=== PATIENT | male | born 1955 | race Caucasian/White ===

== ENCOUNTER 2022-12-27 14:11 | Observation (INO) | payer MEDICARE, SELFPAY ==
[2022-12-27] VITALS (10 sets, daily range): BP systolic 109–140; BP diastolic 59–75; PULSE 68–91; RESP 18–20; TEMP 36.6–36.9; O2SAT 95–98; BMI 29.0; BMI 30.4
--- NOTE | 2022-12-27 14:25 | PC.NURSE ---
DR. NASH AT BEDSIDE
[2022-12-27 14:26] LABS: POC Glucose,Bedside 250 (70-110)
--- NOTE | 2022-12-27 14:29 | HMH.EDGENADL ---
Discharge Plan Disposition Patient Disposition: Admitted as Observation Condition: Fair Prescriptions Prescriptions: No Action Tresiba FlexTouch U-200 200 unit/mL (3 mL) insulin pen 20 unit SQ DAILY Ozempic 0.25 mg or 0.5 mg(2 mg/1.5 mL) pen injector 0.5 mg SQ WEEKLY furosemide 40 mg/4 mL oral solution 40 mg/4 mL solution 40 mg PO DAILY metoprolol succinate 50 mg tablet extended release 24 hr 50 mg PO DAILY mirtazapine 15 mg tablet 15 mg PO DAILY potassium chloride 20 mEq/15 mL liquid 20 meq PO DAILY ramipril 5 mg capsule 5 mg PO DAILY Referrals Follow up/Referrals: Ashley Sagastume [Primary Care Provider] - See instructions Clinical Impressions Clinical Impression: Accidental overdose of insulin Discharge ED Provider: Honorio Quarles General Adult HPI General Chief complaint: Hyper/Hypoglycemia Stated complaint: took too much insulin Time Seen by Provider: 12/27/22 14:24 History of Present Illness HPI narrative: The patient presents to the emergency department because he accidentally overdosed on his long-acting insulin. He took 40 units this morning as prescribed. Later he injected himself with another 160 units thinking at the time that it was a different medication. The patient has not had any hypoglycemia since the injection. 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 Related Data Home Medications Medication Instructions Recorded Confirmed insulin degludec 200 unit/mL (3 20 unit SQ DAILY 10/31/20 10/31/20 mL) subcutaneous pen (Tresiba FlexTouch U-200 insulin) metoprolol succinate 50 mg 50 mg PO DAILY 10/31/20 10/31/20 tablet,extended release 24 hr mirtazapine 15 mg tablet 15 mg PO DAILY 10/31/20 10/31/20 ramipril 5 mg capsule 5 mg PO DAILY 10/31/20 10/31/20 semaglutide 0.25 mg or 0.5 mg (2 0.5 mg SQ WEEKLY 10/31/20 10/31/20 mg/1.5 mL) subcutaneous pen injector (Ozempic) Allergies Allergy/AdvReac Type Severity Reaction Status Date / Time No Known Allergies Allergy Verified 10/31/20 16:00 [facility] Disclaimer: The information contained in this section may have been updated after the patient was seen, as this information can be updated by other users. Social History Smoking Status: Never smoker alcohol intake: current current occupational status: retired Travel in the last 8 weeks: None ROS Obtained: Yes All systems reviewed & no additional complaints except as documented Physical Exam General General appearance: alert Head Head exam: atraumatic Eye Eye exam: Present normal appearance and PERRL ENT ENT exam: Present normal exam Neck Neck exam: Present normal inspection and full ROM; Absent tenderness or meningismus Chest Chest inspection: Present normal inspection and symmetric chest wall rise; Absent tenderness Respiratory Respiratory exam: Present normal lung sounds bilaterally; Absent respiratory distress or accessory muscle use Cardiovascular Cardiovascular exam: Present regular rate, normal rhythm and normal heart sounds Abdominal Exam Abdominal exam: Present soft and normal bowel sounds; Absent distention, tenderness, heel tap sign, Argueta's sign, Rovsing's sign, tenderness at McBurney's Point or mass Extremities Exam Extremities exam: Present normal inspection, full ROM and other (Was a blood glucose sensor on the posterior aspect of his left arm) Back Exam Back exam: Present normal inspection; Absent CVA tenderness (R) or CVA tenderness (L) Neurological Exam Neurological exam: Present alert and oriented X3 Psychiatric Psychiatric exam: Present normal affect and normal mood Skin Skin exam: Present warm, dry, intact and normal color Medical Decision Making Wilber Inquiry Pt receiving controlled substance: No Vital Signs: 12/27/22 14:12 12/27/22 14:30 Temperature 98.1 F Temperature Source Oral Pulse Rate 91 H Pulse Rate [Radial] 91 H R
--- NOTE | 2022-12-27 14:37 | PC.NURSE ---
[place] [facility] contacted , Sayda, and reported pt condition,
--- NOTE | 2022-12-27 14:50 | PC.NURSE ---
Sayda with [facility] recommended at least 24 hours of hospital observation for patient given the pharmacokinetic profile of Tresiga insulin overdose; guidance communicated to ED physician who will contact Hospitalist and recommend inpatient admission
[2022-12-27 14:54] LABS: Basophils # 0.1 K/mm3 (0-0.2); Basophils % 0.8 % (0.1-2.0); Eosinophils # 0.1 K/mm3 (0.0-0.4); Eosinophils % 0.7 % (0.1-12.0); Hematocrit 47.5 % (42.0-52.0); Hemoglobin 16.5 g/dL (14.1-18.0); Lymphocytes # 2.9 K/mm3 (0.7-4.5); Lymphocytes % 29.3 % (10-50); Mean Corpuscular HGB Conc 34.7 g/dL (31.8-35.4); Mean Corpuscular Hemoglobin 31.6 pg (27.0-31.2); Mean Corpuscular Volume 91.2 fl (80-94); Mean Platelet Volume 7.3 fl (7.4-10.4); Monocytes # 0.6 K/mm3 (0.1-1.0); Monocytes % 5.6 % (1.7-9.3); Neutrophils # 6.4 K/mm3 (1.8-7.8); Neutrophils % 63.6 % (37.0-80.0); Platelet Count 312 K/mm3 (142-424); Red Blood Count 5.21 M/mm3 (4.60-6.20); Red Cell Distribution Width 14.3 % (11.5-17.5)
[2022-12-27 14:56] LABS: Chloride 103 mmol/L (98-107); Potassium 4.3 mmoL/L (3.5-5.1); Sodium 139 mmol/L (136-145)
[2022-12-27 14:58] LABS: Blood Urea Nitrogen 19 mg/dl (9-20); Creatinine Clearance Estimated 85 mL/min (50-200); Estimated Glomerular Filt Rate 75 ml/min (>60); GFR (African American) 90 ML/MIN (>60)
[2022-12-27 14:59] LABS: Alanine Aminotransferase 28 U/L (12-78); Albumin Level 4.6 g/dl (3.5-5.0); Albumin/Globulin Ratio 1.5 (1.1-1.8); Alkaline Phosphatase 69 U/L (38-126); Anion Gap 12.3 mEq/L (5-15); Aspartate Amino Transferase 27 U/L (17-59); Bilirubin,Total 0.4 mg/dl (0.2-1.3); Calcium 8.8 mg/dl (8.4-10.2); Carbon Dioxide 28 mmol/L (22.0-30.0); Globulin 3.1 g/dL (1.3-3.2); Glucose 204 mg/dl (74-100); Total Protein,Serum 7.7 g/dl (6.3-8.2)
[2022-12-27 15:00] LABS: Coronavirus 19, PCR Not Detected (NotDetected); Influenza A, PCR Not Detected (NotDetected); Influenza B, PCR Not Detected (NotDetected)
--- NOTE | 2022-12-27 15:00 | PC.NURSE ---
DR. NASH SPEAKING WITH DR. JOSEPH
--- NOTE | 2022-12-27 15:01 | PC.NURSE ---
DR JOSEPH HAS AGREED TO ADMIT PT
--- NOTE | 2022-12-27 15:02 | PC.NURSE ---
CARE MANAGEMENT NOTIFIED OF ADMISSION
--- NOTE | 2022-12-27 15:35 | PC.NURSE ---
ROUNDED ON PT AT THIS TIME, UPDATED AT THIS TIME. NO NEEDS VOICED
--- NOTE | 2022-12-27 15:42 | PC.NURSE ---
REPORT GIVEN TO Abby RODRIGUEZ RN
--- NOTE | 2022-12-27 15:49 | PC.NURSE ---
PT AMBULATED TO BR WITHOUT ASSISTANCE
--- NOTE | 2022-12-27 16:03 | PC.NURSE ---
PT GOING UP FOR ADMISSION
--- NOTE | 2022-12-27 16:08 | PC.NURSE ---
patient arrived by wheelchair form ED
--- NOTE | 2022-12-27 17:10 | PC.NURSE ---
Patient resting comfortably in recliner, alert and oriented x4, on RA, denies any pain or soa, glucose being monitored by patients yeni, on arrival to unit glucose 164, 1700- glucose 178.
--- NOTE | 2022-12-27 18:04 | EXP.HP ---
History of Present Illness *Admission Date: 12/27/22 *Reason for visit:: Inadvertent insulin overdose *History of present illness: Mr. Polk is a pleasant 67-year-old gentleman with well-controlled diabetes per report. He presented to the ER after inadvertently giving himself approximately 140 units of insulin degludec. He states that he gave himself his normal 40 units this morning and then went to give himself his Ozempic shot. He inadvertently grabbed his insulin degludec pen again and gave himself the maximum dose possible by the pen. He realized after he did this this was a bad thing and looked up poison control. He subsequently came to the ER for evaluation. Patient wears a freestyle yeni and has been monitoring his blood sugar. No lows per his report. ER contacted poison control, recommended observation overnight to monitor for hypoglycemia. Patient tolerating good p.o. intake. Eating regular diet. No other lab disturbances. Patient at baseline level of function. Medicine consulted for admission to observation. Patient denies fatigue, chest pain, confusion, nausea, vomiting, diarrhea, weakness. Overall feels normal, just embarrassed [facility] Disclaimer: The information contained in this section may have been updated after the patient was seen, as this information can be updated by other users. Medical History (Updated 12/27/22 @ 18:12 by Glen Russell MD) Anxiety CVA (cerebral vascular accident) Depression Diabetes Hyperlipidemia Hypertension Myocardial infarct Surgical History Aortic valve replaced History of appendectomy Hx of CABG Hx of cholecystectomy Hx of tonsillectomy Family History Coronary artery disease Anemia Cancer Social History Smoking Status: Never smoker alcohol intake: current current occupational status: retired Travel in the last 8 weeks: None Review of Systems Review of Systems Review of systems (narrative): 14 point review of systems performed, pertinent positives and negatives as per HPI Meds Home Medications and Allergies Home Medications Medication Instructions Recorded Confirmed Type metoprolol succinate 50 mg 50 mg PO DAILY Heart rhythm 10/31/20 12/27/22 History tablet,extended release 24 hr mirtazapine 15 mg tablet 15 mg PO HS Depression 10/31/20 12/27/22 History ramipril 5 mg capsule 5 mg PO DAILY High blood pressure 10/31/20 12/27/22 History aspirin 325 mg tablet 325 mg PO DAILY Heart disease 12/27/22 12/27/22 History bupropion HCl 300 mg 24 hr tablet, 300 mg PO DAILY Depression 12/27/22 12/27/22 History extended release empagliflozin 10 mg tablet 10 mg PO DAILY Diabetes 12/27/22 12/27/22 History (Jardiance) ezetimibe 10 mg tablet (Zetia) 10 mg PO DAILY Cholesterol 12/27/22 12/27/22 History fluticasone propionate 50 1 spray intranasal DAILY Allergy 12/27/22 12/27/22 History mcg/actuation nasal symptoms spray,suspension furosemide 40 mg tablet 40 mg PO DAILY Fluid 12/27/22 12/27/22 History insulin degludec 200 unit/mL (3 30 unit SQ PM Diabetes 12/27/22 12/27/22 History mL) subcutaneous pen (Tresiba FlexTouch U-200 insulin) insulin degludec 200 unit/mL (3 40 unit SQ AM Diabetes 12/27/22 12/27/22 History mL) subcutaneous pen (Tresiba FlexTouch U-200 insulin) metformin 1,000 mg tablet 1,000 mg PO BIDWMEAL Diabetes 12/27/22 12/27/22 History potassium chloride 20 mEq 20 meq PO DAILY Supplement 12/27/22 12/27/22 History tablet,extended release(part/cryst) semaglutide 2 mg/dose (8 mg/3 mL) 8 mg SQ WEEKLY Diabetes 12/27/22 12/27/22 History subcutaneous pen injector (Ozempic) trazodone 100 mg tablet 50 - 300 mg PO HS SLEEP 12/27/22 12/27/22 History New Prescriptions to Start Prescriptions: Allergies Allergy/AdvReac Type Severity Reaction Status Date / Time amitrip
--- NOTE | 2022-12-27 18:11 | PC.NURSE ---
1800- glucose per patients yeni 122
[2022-12-27 18:27] LABS: Hemoglobin A1C 6.5 % (4.0-6.0)
--- NOTE | 2022-12-27 21:09 | PC.NURSE ---
Was reviewing scheduled night meds with pt, and pt states he takes 300 mg Trazodone every night at home, instead of 50 mg. Domenic CORDERO notified and states will change order.
[2022-12-28 04:00] VITALS: BP 130/69; PULSE 68; RESP 18; TEMP 36.7; O2SAT 95; BMI 30.3
[2022-12-28 06:19] LABS: Basophils # 0.1 K/mm3 (0-0.2); Eosinophils # 0.1 K/mm3 (0.0-0.4); Eosinophils % 1.5 % (0.1-12.0); Hematocrit 42.6 % (42.0-52.0); Lymphocytes # 3.4 K/mm3 (0.7-4.5); Lymphocytes % 41.4 % (10-50); Mean Corpuscular HGB Conc 33.4 g/dL (31.8-35.4); Mean Corpuscular Hemoglobin 30.8 pg (27.0-31.2); Mean Corpuscular Volume 92.3 fl (80-94); Mean Platelet Volume 7.1 fl (7.4-10.4); Monocytes # 0.5 K/mm3 (0.1-1.0); Monocytes % 6.5 % (1.7-9.3); Neutrophils # 4.1 K/mm3 (1.8-7.8); Neutrophils % 49.6 % (37.0-80.0); Platelet Count 274 K/mm3 (142-424); Red Blood Count 4.61 M/mm3 (4.60-6.20); Red Cell Distribution Width 14.2 % (11.5-17.5); White Blood Count 8.2 K/mm3 (4.8-10.8)
[2022-12-28 06:22] LABS: Hemoglobin 14.2 g/dL (14.1-18.0)
[2022-12-28 06:27] LABS: Alanine Aminotransferase 22 U/L (12-78); Albumin/Globulin Ratio 1.6 (1.1-1.8); Alkaline Phosphatase 58 U/L (38-126); Anion Gap 9.7 mEq/L (5-15); Aspartate Amino Transferase 18 U/L (17-59); Bilirubin,Total 0.3 mg/dl (0.2-1.3); Blood Urea Nitrogen 17 mg/dl (9-20); Calcium 8.7 mg/dl (8.4-10.2); Carbon Dioxide 28 mmol/L (22.0-30.0); Chloride 105 mmol/L (98-107); Creatinine Clearance Estimated 89 mL/min (50-200); Estimated Glomerular Filt Rate 84 ml/min (>60); GFR (African American) 102 ML/MIN (>60); Globulin 2.5 g/dL (1.3-3.2); Glucose 86 mg/dl (74-100); Magnesium 2.1 mg/dl (1.6-2.3); Potassium 3.7 mmoL/L (3.5-5.1); Sodium 139 mmol/L (136-145); Total Protein,Serum 6.5 g/dl (6.3-8.2)
--- NOTE | 2022-12-28 06:39 | PC.NURSE ---
Glucose per pts yeni this shift: 1900: 196 2000: 212 2200:242 0000: 131 0216: 111 0300: 106 0425: 101 0600: 80 0635: 121 Pt given multiple snacks throughout the night. Pt independent, has had no complaints this shift, and no symptoms of hypoglycemia.
--- NOTE | 2022-12-28 07:01 | EXP.DC.SUM ---
General Admission date:: 12/27/22 Discharge date: 12/28/22 HPI HPI HPI: Mr. Polk is a pleasant 67-year-old gentleman with well-controlled diabetes per report. He presented to the ER after inadvertently giving himself approximately 140 units of insulin degludec. He states that he gave himself his normal 40 units this morning and then went to give himself his Ozempic shot. He inadvertently grabbed his insulin degludec pen again and gave himself the maximum dose possible by the pen. He realized after he did this this was a bad thing and looked up poison control. He subsequently came to the ER for evaluation. Patient wears a freestyle yeni and has been monitoring his blood sugar. No lows per his report. ER contacted poison control, recommended observation overnight to monitor for hypoglycemia. Patient tolerating good p.o. intake. Eating regular diet. No other lab disturbances. Patient at baseline level of function. Medicine consulted for admission to observation. Patient denies fatigue, chest pain, confusion, nausea, vomiting, diarrhea, weakness. Overall feels normal, just embarrassed Hospital Course Hospital Course Hospital Course: Mr. oPlk is a 67-year-old male with diabetes.? Takes insulin daily.? Inadvertently administered too much insulin today.? Admitted to observation for monitoring as he is at risk of hypoglycemia.? Problems addressed as follows: Type 2 diabetes, insulin-dependent - Normally takes Ozempic weekly, metformin twice a day, Jardiance daily, and Tresiba twice a day. Overdosed his Tresiba by inadvertently grabbing his Tresiba pen instead of his Ozempic pen. Took between 140 and 200 units. Has been monitored overnight with stable glucoses. Lowest glucose was 80 this morning on morning labs. No symptomatic lows. Tolerating regular diet. Denies any symptoms. A1c obtained, 6.5. Diabetes appears well controlled on his current outpatient regimen. Recommend Hold diabetes meds today except for basal insulin. Resuming his oral diabetes meds tomorrow. Will resume Tresiba tonight at 30 units. Titrate daily by 10 units until goal dose of 70units (based on previous total daily dose). Goal morning blood sugar between 90 and 140. Stable for discharge home. Hypertension: Continue home regimen as ordered Hyperlipidemia: Continue home regimen as ordered Depression: Continue home regimen as ordered Sleep disorder: Continue trazodone Exam Data for Last 24 hours Vital signs and Labs for Last 24 Hours: Temp Pulse Resp BP Pulse Ox 98.0 F 68 18 130/69 95 12/28/22 04:00 12/28/22 04:00 12/28/22 04:00 12/28/22 04:00 12/28/22 04:00 Laboratory Results - last 24 hr 12/27/22 14:16: POC Glucose 250 H 12/27/22 14:20: WBC 10.0, RBC 5.21, Hgb 16.5, Hct 47.5, MCV 91.2, MCH 31.6 H, MCHC 34.7, RDW 14.3, Plt Count 312, MPV 7.3 L, Neut % (Auto) 63.6, Lymph % (Auto) 29.3, Evans % (Auto) 5.6, Eos % (Auto) 0.7, Baso % (Auto) 0.8, Neut # (Auto) 6.4, Lymph # (Auto) 2.9, Evans # (Auto) 0.6, Eos # (Auto) 0.1, Baso # (Auto) 0.1 12/27/22 14:20: Sodium 139, Potassium 4.3, Chloride 103, Carbon Dioxide 28, Anion Gap 12.3, BUN 19, Creatinine 1.00, Estimated Creat Clear 85, Estimated GFR 75, Est GFR ( Amer) 90, Glucose 204 H, Calcium 8.8, Total Bilirubin 0.4, AST 27, ALT 28, Alkaline Phosphatase 69, Total Protein 7.7, Albumin 4.6, Globulin 3.1, Albumin/Globulin Ratio 1.5 12/27/22 14:20: Hemoglobin A1c 6.5 H 12/27/22 14:54: SARS-CoV-2 (PCR) Not detected, Influenza A Untype (PCR) Not detected, Influenza Type B (PCR) Not detected 12/28/22 06:05: WBC 8.2, RBC 4.61, Hgb 14.2 D, Hct 42.6, MCV 92.3, MCH 30.8, MCHC 33.4, RDW 14.2, Plt Count 274, MPV 7.1 L, Neut % (Auto) 49.6, Lymph % (Auto) 41.4, Evans % (Auto) 6.5, Eos % (Auto) 1.5, Baso % (Auto) 1.0, Neut # (Auto) 4.1, Lymph # (Auto) 3.4, Evans # (Auto) 0.5, Eos # (Auto) 0.1, Baso # (Auto) 0.1 12/28/22 06:05: Sodium 139, Potassium 3.7, Chloride 105, Carbon Dioxide 28, Anion Gap 9.7, BUN 17
--- NOTE | 2022-12-28 07:39 | HMH.PHAINT1 ---
Pharmacy Intervention Comments: home medication list verified with outpatient pharmacy
[2022-12-28 07:44] VITALS: BP 105/60; PULSE 77; RESP 17; TEMP 36.6; O2SAT 97
[2022-12-28 08:44] VITALS: BP 126/77
--- NOTE | 2022-12-28 09:53 | HMH.PHAINT1 ---
Pharmacy Intervention Comments: DISCHARGE MEDICATION COUNSELING PROVIDED. DISCUSSED STOPPING THE 40 UNITS OF TRESIBA AND STARTING BACK AT 30 UNITS, WITH INSTRUCTIONS TO TITRATE BY 10 UNITS DAILY UP TO 70 UNITS IF BLOOD SUGAR NOT IN RANGE OF 90-140. PATIENT VERBALIZED NO QUESTIONS AT THIS TIME.
--- NOTE | 2022-12-30 14:36 | CARE MANAGER ---
Spoke with patient for post-discharge phone interview, no issues.
== END 2022-12-28 10:25 | disposition home or self-care (01) ==
LOC: ER 14:57 → 2ND 15:39
PROVIDERS: Admitting Provider Internal Medicine Adolescent Medicine; Emergency Provider Emergency Medicine; PCP Internal Medicine; Visit Provider Internal Medicine Adolescent Medicine
DX: T38.3X1A Poisoning by insulin and oral hypoglycemic [antidiabetic] drugs, accidental (unintentional), initial encounter (principal); E11.9 Type 2 diabetes mellitus without complications; I10 Essential (primary) hypertension; E78.5 Hyperlipidemia, unspecified; F32.A Depression, unspecified; Z20.822 Contact with and (suspected) exposure to COVID-19
CPT/HCPCS: G0378; 36415; 80053; 82962; 83036; 83735; 85025; 99285; C9803; U0003; U0005

== ENCOUNTER 2024-12-28 14:00 | Outpatient (RCR) | payer MEDICARE, SELFPAY | END 2024-12-28 23:59 | disposition home or self-care (01) | LOC: PT 14:00 | PROVIDERS: PCP Internal Medicine; Visit Provider Family Medicine | DX: M54.16 Radiculopathy, lumbar region (principal); M25.551 Pain in right hip; M79.651 Pain in right thigh; R29.898 Other symptoms and signs involving the musculoskeletal system | CPT/HCPCS: 97014; 97110; 97140; 97163; 97530; G0283 ==

== ENCOUNTER 2025-01-18 15:00 | Outpatient (RCR) | payer MEDICARE, SELFPAY | END 2025-01-18 23:59 | disposition home or self-care (01) | LOC: PT 15:00 | PROVIDERS: PCP Internal Medicine; Visit Provider Family Medicine | DX: M54.16 Radiculopathy, lumbar region (principal); M25.551 Pain in right hip; M79.651 Pain in right thigh; R29.898 Other symptoms and signs involving the musculoskeletal system | CPT/HCPCS: 97110; 97140; 97530 ==

== ENCOUNTER 2025-02-25 14:00 | Outpatient (RCR) | payer MEDICARE, SELFPAY | END 2025-02-25 23:59 | disposition home or self-care (01) | LOC: PT 14:00 | PROVIDERS: PCP Internal Medicine; Visit Provider Family Medicine | DX: M54.16 Radiculopathy, lumbar region (principal); M25.551 Pain in right hip; M79.651 Pain in right thigh; R29.898 Other symptoms and signs involving the musculoskeletal system | CPT/HCPCS: 97110; 97530 ==

== ENCOUNTER 2025-03-08 12:58 | Outpatient (RCR) | payer MEDICARE, SELFPAY | END 2025-03-08 23:59 | disposition home or self-care (01) | LOC: PT 12:58 | PROVIDERS: PCP Internal Medicine; Visit Provider Family Medicine | DX: M54.16 Radiculopathy, lumbar region (principal); M25.551 Pain in right hip; M79.651 Pain in right thigh; R29.898 Other symptoms and signs involving the musculoskeletal system | CPT/HCPCS: 97110; 97530 ==